=== PATIENT | male | born 1995 | race Caucasian/White ===

== ENCOUNTER 2016-07-17 13:19 | Emergency (ER) | payer OTHER ==
[2016-07-17 13:26] VITALS: BP 117/68; PULSE 65; RESP 15; TEMP 97.9; O2SAT 97
--- NOTE | 2016-07-17 14:19 | UCPHY ---
H & P Patient Type: Established HPI/ROS: CHIEF COMPLAINT: Cough History by patient HISTORY OF PRESENT ILLNESS: 21-year-old man presents with 2 days of cough, sinus congestion, sore throat, bilateral ear pain and generalized well as. He had a subjective fever at home yesterday. There has been no shortness of breath , nausea, vomiting or diarrhea. He is a student but has no specific ill contacts. He does not smoke. He has tried Sudafed and ibuprofen with some relief. REVIEW OF SYSTEMS: As in HPI, and all other systems reviewed and are negative Smoking Status: Never smoked Physical Exam: General Appearance: Alert and no distress. Head: normocephalic, atraumatic, no sinus tenderness Eyes: Pupils equal and round no injection. Ears: TM clear on left and right occluded by cerumen OP: mucus membranes moist, mild erythema, minimal tonsillar enlargement, no exudates Neck: no meningismus, positive mildly tender left cervical nodes, no submandibular nodes Respiratory: Chest is nontender, lungs are clear to auscultation. Cardiac: regular rate and rhythm. Gastrointestinal: Abdomen is soft and nontender, no masses, bowel sounds normal. Musculoskeletal: Neck is supple and nontender. Extremities have full range of motion and are nontender. Skin: No rashes or lesions. Constitutional: Initial Vital Signs Temperature (C) 36.6 C 07/17/16 13:23 Heart Rate 65 07/17/16 13:23 Respiratory Rate 15 07/17/16 13:23 Blood Pressure 117/68 07/17/16 13:23 O2 Sat (%) 97 07/17/16 13:23 O2 Delivery Mode Room Air Allergies/Adverse Reactions: No Known Allergies Allergy (Unverified 01/10/16 18:39) Home Medications: Medication Instructions Recorded NK [No Known Home Meds] 07/17/16 Medical Decision Making ED Course/Re-evaluation: Patient presents with URI symptoms. There is no evidence of hypoxia or respiratory compromise. This point there is no evidence of acute bacterial illness. We discussed conservative measures and home care and return precautions. Departure - Departure Disposition: Home, Routine, Self-Care Clinical Impression: Upper respiratory infection Qualifiers: URI type: unspecified viral URI Qualified Code(s): J06.9 - Acute upper respiratory infection, unspecified Condition: Good Instructions: Upper Respiratory Infection (ED) Referrals: NONE *PRIMARY CARE P,. [Primary Care Provider] - As per Instructions - PQRS PQRS Measurement: NA
== END 2016-07-17 15:06 | disposition home or self-care (01) ==
LOC: CED 13:19
DX: J06.9 Acute upper respiratory infection, unspecified (principal)
CPT/HCPCS: 99214-PO; G0463-PO